=== PATIENT | male | born 1960 | race African-American/Black ===

== ENCOUNTER 2020-11-30 10:32 | Emergency (ER) | payer MEDICARE, MEDICAID ==
[~2020-11-30] VITALS: Ht 172.7 cm; Wt 80.0 kg
[2020-11-30 11:25] LABS: BASOPHILS % 0.6 % (0.0-2.0); EOSINOPHILS % 1.7 % (0.0-5.0); HEMATOCRIT. 40.8 % (42.0-52.0); HEMOGLOBIN. 13.7 g/dL (14.0-18.0); LYMPHOCYTES % 25.9 % (20.0-50.0); MEAN CORPUSCULAR HEMOGLOBIN 30.6 pg (28.0-32.0); MEAN PLATELET VOLUME 10.4 fl (7.4-10.4); MONOCYTES % 7.9 % (2.0-8.0); NEUTROPHILS % 63.9 % (40.0-76.0); PLATELET 179 x1000/uL (130-400); RED BLOOD CELL COUNT 4.48 mill/uL (4.7-6.1); RED CELL DISTRIBUTION WIDTH 13.5 % (11.6-14.6)
[2020-11-30 11:33] LABS: CHLORIDE 101 mEq/L (98-107)
[2020-11-30] MEDS ORDERED: BENZ100C86 MT ×2 (16:41)
[2020-11-30] MEDS ORDERED: DEXTL MT (16:43)
[2020-11-30 22:34] VITALS: BP 160/102
[2020-12-15] MEDS ORDERED: LOSA25TA26 MT (03:50)
[2020-12-15] MEDS ORDERED: METO-385 MT (03:50)
[2020-12-15] MEDS ORDERED: OXYB5SYR2 PO (03:50)
[2020-12-15] MEDS ORDERED: TRAZ150T78 MT (03:50)
[2020-12-15] MEDS ORDERED: DEXT15DR29 EACHEYE (03:50)
[2020-12-15] MEDS ORDERED: OMEP20CA14 PO (03:50)
[2020-12-15] MEDS ORDERED: DOCU-150 MT (03:50)
[2020-12-15] MEDS ORDERED: LORA10TA7 MT (03:50)
[2020-12-15] MEDS ORDERED: IMIP25TA6 MT (03:50)
[2020-12-15] MEDS ORDERED: ILOP6TAB2 MT (03:50)
[2020-12-15] MEDS ORDERED: ACET-2708 MT (03:53)
[2020-12-15] MEDS ORDERED: IBUP-2030 MT (03:53)
[2020-12-15] MEDS ORDERED: TRAM50TA MT (03:53)
== END 2020-11-30 23:15 | disposition home or self-care (01) ==
LOC: ER 10:32
DX: R07.89 Other chest pain (principal); R06.02 Shortness of breath; R05 Cough; I10 Essential (primary) hypertension; Z98.890 Other specified postprocedural states; Z79.899 Other long term (current) drug therapy; Z20.822 Contact with and (suspected) exposure to COVID-19
CPT/HCPCS: 36415; 71045; 80053; 83880; 84484; 85025; 85379; 87426; 93005; 99285

== ENCOUNTER 2025-02-09 12:51 | Inpatient (IN) | payer OTHER, MEDICAID, MEDICARE ==
[~2025-02-09] VITALS: Ht 188 cm; Wt 97.2 kg
[~2025-02-09 12:51] MED LIST: ACET-2708 MT; DEXT15DR29 EACHEYE; DEXTL MT; DOCU-422 MT; IBUP-2030 MT; ILOP6TAB2 MT; IMIP25TA MT; LORA10TA7 MT; LOSA25TA26 MT; METO-385 MT; OMEP20CA14 PO; OXYB5SYR2 PO; TRAM50TA MT; TRAZ150T78 MT
[2025-02-09] MEDS: SODIUM CHLORIDE 0.9% 1,000 ML IV ONE (14:56)
[2025-02-09 15:17] LABS: BASOPHILS % 0.6 % (0.0-2.0); EOSINOPHILS % 2.1 % (0.0-5.0); HEMATOCRIT. 33.3 % (42.0-52.0); HEMOGLOBIN. 10.4 g/dL (14.0-18.0); LYMPHOCYTES % 25.2 % (20.0-50.0); MEAN PLATELET VOLUME 9.4 fl (7.4-10.4); MONOCYTES % 6.4 % (2.0-8.0); NEUTROPHILS % 65.7 % (40.0-76.0); PLATELET 195 x1000/uL (130-400); RED BLOOD CELL COUNT 4.50 mill/uL (4.7-6.1); RED CELL DISTRIBUTION WIDTH 23.4 % (11.6-14.6)
[2025-02-09 15:19] LABS: ADD RBC MORPHOLOGY YES
[2025-02-09 15:29] LABS: INR 1.1
[2025-02-09 15:30] LABS: CREATININE 1.1 mg/dL (0.6-1.3)
[2025-02-09 15:31] LABS: TROPONIN I HIGH SENSITIVITY 9 ng/L (3.0-53); UREA NITROGEN BLOOD 14 mg/dL (9-23)
[2025-02-09 15:32] LABS: ASPARTATE AMINOTRANSFERASE 15 IU/L (<34)
[2025-02-09 15:33] LABS: BILIRUBIN DIRECT 0.2 mg/dL (<=3.0); BILIRUBIN TOTAL 0.7 mg/dL (0.1-1.0); PROTEIN TOTAL 7.2 g/dL (6.0-8.3)
[2025-02-09 16:00] LABS: PLATELET ESTIMATE NORMAL
[2025-02-09 19:50] LABS: CLARITY URINE CLEAR (CLEAR); COLOR URINE YELLOW (YELLOW); PH URINE 7.0 (4.5-8.0); SPECIFIC GRAVITY URINE 1.027 (1.005-1.030)
[2025-02-09 19:51] LABS: GLUCOSE URINE 3+ (NEGATIVE); KETONES URINE NEGATIVE (NEGATIVE); LEUKOCYTE ESTERASE URINE NEGATIVE (NEGATIVE); NITRITE URINE NEGATIVE (NEGATIVE); OCCULT BLOOD URINE NEGATIVE (NEGATIVE); PROTEIN URINE NEGATIVE (NEGATIVE); UROBILINOGEN URINE 1.0 E.U./dL (0.2-1.0)
[2025-02-09 20:00] VITALS: BP 109/51; PULSE 71; RESP 18; TEMP 36.5; O2SAT 100
[2025-02-09 20:08] LABS: BACTERIA URINE NONE SEEN; RBC URINE NONE SEEN /hpf (0-2); SQUAMOUS EPITHELIAL CELL URINE RARE /lpf (RARE/1+); WBC URINE 0-2 /hpf (0-2)
[2025-02-09] MEDS ORDERED: IPRATROPIUM/ALBUTEROL 0.5-3(2.5)MG/3ML NEB HHN PRN (22:00)
[2025-02-09] MEDS ORDERED: NALOXONE HCL 0.4MG/ML VIAL IV PRN (22:15)
[2025-02-09 23:01] VITALS: BP 109/51; PULSE 71; RESP 18; TEMP 36.5292
[2025-02-10] VITALS: BP 115/70; PULSE 68; RESP 18; TEMP 36.6; O2SAT 99
[2025-02-10] MEDS: ACETAMINOPHEN 325MG TABLET PO PRN (00:51)
[2025-02-10 04:00] VITALS: BP 134/71; PULSE 57; RESP 19; TEMP 36.7; O2SAT 99
[2025-02-10 07:46] LABS: BASOPHILS % 0.6 % (0.0-2.0); EOSINOPHILS % 3.0 % (0.0-5.0); HEMATOCRIT. 33.8 % (42.0-52.0); HEMOGLOBIN. 10.7 g/dL (14.0-18.0); LYMPHOCYTES % 32.6 % (20.0-50.0); MEAN PLATELET VOLUME 10.3 fl (7.4-10.4); MONOCYTES % 6.3 % (2.0-8.0); NEUTROPHILS % 57.5 % (40.0-76.0); PLATELET 183 x1000/uL (130-400); RED BLOOD CELL COUNT 4.56 mill/uL (4.7-6.1); RED CELL DISTRIBUTION WIDTH 23.8 % (11.6-14.6)
[2025-02-10 08:00] VITALS: BP 136/78; PULSE 63; RESP 18; TEMP 36.4; O2SAT 98
[2025-02-10 08:06] LABS: CREATININE 1.1 mg/dL (0.6-1.3); UREA NITROGEN BLOOD 17 mg/dL (9-23)
[2025-02-10 08:41] LABS: HEPATITIS C AB NON REACTIVE (Neg) (Negative)
[2025-02-10] MEDS: LORATADINE 10MG TABLET PO SCH (09:17)
[2025-02-10] MEDS: DOCUSATE SODIUM 100MG CAPSULE PO SCH (09:17)
[2025-02-10 12:00] VITALS: BP 124/62; PULSE 76; RESP 18; TEMP 36.2; O2SAT 98
[2025-02-10] MEDS: ASPIRIN 81MG TABLET PO SCH (13:45)
[2025-02-10] MEDS: FUROSEMIDE 40MG/4ML VIAL IVP SCH (13:45)
[2025-02-10 16:00] VITALS: BP 126/91; PULSE 76; RESP 17; TEMP 36.4; O2SAT 99
[2025-02-10 20:00] VITALS: BP 120/67; PULSE 54; RESP 18; TEMP 36.2; O2SAT 98
[2025-02-10] MEDS: ATORVASTATIN CALCIUM 40MG TABLET PO SCH (20:43)
[2025-02-10] MEDS: ONDANSETRON HCL 4MG/2ML INJ IV PRN (21:52)
[2025-02-11] VITALS: BP 139/91; PULSE 74; RESP 20; TEMP 36.7; O2SAT 97
[2025-02-11] MEDS: BENZONATATE 200MG CAPSULE PO PRN (02:21)
[2025-02-11 04:00] VITALS: BP 123/88; PULSE 74; RESP 20; TEMP 36.6; O2SAT 98
[2025-02-11 07:24] LABS: TROPONIN I HIGH SENSITIVITY 10 ng/L (3.0-53)
[2025-02-11 07:25] LABS: CREATININE 1.3 mg/dL (0.6-1.3); UREA NITROGEN BLOOD 17 mg/dL (9-23)
[2025-02-11 08:00] VITALS: BP 121/83; PULSE 85; RESP 18; TEMP 36.7; O2SAT 96
[2025-02-11] MEDS ORDERED: BENZONATATE 100MG CAPSULE PO PRN (08:30)
[2025-02-11 10:20] LABS: *AMPHETAMINES SCREEN URINE NEGATIVE (NEGATIVE)
[2025-02-11 10:21] LABS: *BARBITURATES SCREEN URINE NEGATIVE (NEGATIVE); *BENZODIAZEPINES SCREEN URINE NEGATIVE (NEGATIVE); *COCAINE SCREEN URINE NEGATIVE (NEGATIVE); METHADONE URINE SCREEN NEGATIVE (NEGATIVE)
[2025-02-11 10:22] LABS: CANNABINOID URINE SCREEN NEGATIVE (NEGATIVE); OPIATES URINE SCREEN NEGATIVE (NEGATIVE); PHENCYCLIDINE URINE SCREEN NEGATIVE (NEGATIVE)
[2025-02-11 10:23] LABS: ECSTASY MDMA SCREEN URINE NEGATIVE (NEGATIVE)
[2025-02-11 12:00] VITALS: BP 126/88; PULSE 105; RESP 18; TEMP 36.6; O2SAT 98
[2025-02-11] MEDS: DILTIAZEM HCL 5MG/ML 5ML VIAL IV SCH (15:11)
[2025-02-11] MEDS: METOPROLOL TARTRATE 50MG TABLET PO SCH (15:11)
[2025-02-11 16:00] VITALS: BP 122/78; PULSE 111; RESP 17; TEMP 36.6; O2SAT 97
[2025-02-11 20:00] VITALS: BP 108/72; PULSE 103; RESP 18; TEMP 36.5; O2SAT 100
[2025-02-12] VITALS: BP 116/72; PULSE 68; RESP 18; TEMP 36.4; O2SAT 100
[2025-02-12 04:00] VITALS: BP 126/76; PULSE 18; RESP 18; TEMP 36.3; O2SAT 99
[2025-02-12 08:00] VITALS: BP 135/81; PULSE 17; RESP 16; TEMP 36.6; O2SAT 97
[2025-02-12 09:41] LABS: BASOPHILS % 0.4 % (0.0-2.0); EOSINOPHILS % 2.5 % (0.0-5.0); HEMATOCRIT. 36.8 % (42.0-52.0); HEMOGLOBIN. 11.7 g/dL (14.0-18.0); LYMPHOCYTES % 23.9 % (20.0-50.0); MEAN PLATELET VOLUME 10.0 fl (7.4-10.4); MONOCYTES % 9.7 % (2.0-8.0); NEUTROPHILS % 63.5 % (40.0-76.0); PLATELET 222 x1000/uL (130-400); RED BLOOD CELL COUNT 5.04 mill/uL (4.7-6.1); RED CELL DISTRIBUTION WIDTH 23.0 % (11.6-14.6)
[2025-02-12] MEDS ORDERED: REGADENOSON 0.4 MG/5 ML IV SCH (10:00)
[2025-02-12 10:09] LABS: CREATININE 1.1 mg/dL (0.6-1.3)
[2025-02-12 10:10] LABS: UREA NITROGEN BLOOD 19 mg/dL (9-23)
[2025-02-12 12:00] VITALS: BP 115/82; PULSE 102; RESP 17; TEMP 36.5; O2SAT 100
[2025-02-12 16:00] VITALS: BP 120/78; PULSE 110; RESP 18; TEMP 36.6; O2SAT 98
[2025-02-12 20:00] VITALS: BP 103/75; PULSE 107; RESP 18; TEMP 36.3; O2SAT 100
[2025-02-12] MEDS: HYDROCODONE/ACETAMINOPHEN 5/325MG TABLET PO PRN (21:15)
[2025-02-13] VITALS: BP 138/91; PULSE 78; RESP 18; TEMP 36.4; O2SAT 94
[2025-02-13 04:00] VITALS: BP 114/86; PULSE 92; RESP 18; TEMP 36.4; O2SAT 100
[2025-02-13 08:00] VITALS: BP 145/82; PULSE 92; RESP 18; TEMP 36.3; O2SAT 100
[2025-02-13 12:00] VITALS: BP 139/94; PULSE 66; RESP 18; TEMP 36.4; O2SAT 98
[2025-02-13] MEDS ORDERED: NAPROXEN 250MG TABLET PO NR (12:30)
[2025-02-13] MEDS ORDERED: LIP40 MT (12:34)
[2025-02-13] MEDS ORDERED: ASPI-1497 MT (12:34)
[2025-02-13] MEDS ORDERED: IBUP-2437 MT (12:34)
[2025-02-13] MEDS ORDERED: FURO-151 MT (12:34)
[2025-02-13 14:24] VITALS: BP 139/94; PULSE 66; TEMP 97.5; O2SAT 98
[2025-02-13 16:00] VITALS: BP 113/81; PULSE 90; RESP 18; TEMP 36.1; O2SAT 98
[2025-02-13] MEDS ORDERED: NAPROXEN 250MG TABLET PO SCH (17:50)
[2025-02-17] MEDS ORDERED: PANT40VI PO (12:17)
[2025-02-17] MEDS ORDERED: FERR-63 PO (12:17)
== END 2025-02-13 16:30 | disposition home or self-care (01) | DRG 291 ==
LOC: ER 12:51 → 6WST 17:57 → EDBEDREQ 18:23 → EDBEDREQTM 18:23 → ENRESERV 18:49
PROVIDERS: ADMIT Internal Medicine; ATTEND Internal Medicine
DX: I11.0 Hypertensive heart disease with heart failure (principal); I50.43 Acute on chronic combined systolic (congestive) and diastolic (congestive) heart failure; E66.9 Obesity, unspecified; J44.9 Chronic obstructive pulmonary disease, unspecified; E11.9 Type 2 diabetes mellitus without complications; I95.9 Hypotension, unspecified; D64.9 Anemia, unspecified; E78.00 Pure hypercholesterolemia, unspecified; I25.10 Atherosclerotic heart disease of native coronary artery without angina pectoris; Z79.899 Other long term (current) drug therapy; Z68.27 Body mass index [BMI] 27.0-27.9, adult
CPT/HCPCS: 36415; 71045; 74176; 78452; 80048; 80076; 80305; 81003; 83520; 83880; 84484; 85025; 86705; 87340; 93005; 96360; 99291; A9500; J1938; J2405; J2785; J3490; J7030